=== PATIENT | female | born 1945 | race Caucasian/White ===

== ENCOUNTER 2016-05-30 08:27 | Outpatient (CLI) | payer OTHER | END 2016-05-30 20:00 | disposition home or self-care (01) | LOC: SMA 08:27 | PROVIDERS: ATTEND Family Medicine | DX: N63 Unspecified lump in breast (principal); R92.1 Mammographic calcification found on diagnostic imaging of breast | CPT/HCPCS: 76641; G0204; G0206 ==

== ENCOUNTER 2016-12-03 09:01 | Outpatient (CLI) | payer OTHER | END 2016-12-03 19:29 | disposition home or self-care (01) | LOC: SMA 09:01 | PROVIDERS: ATTEND Family Medicine | DX: R92.8 Other abnormal and inconclusive findings on diagnostic imaging of breast (principal) | CPT/HCPCS: 76641; G0204 ==

== ENCOUNTER 2017-06-11 08:07 | Outpatient (CLI) | payer OTHER | END 2017-06-11 15:49 | disposition home or self-care (01) | LOC: SUS 08:07 | PROVIDERS: ATTEND Family Medicine | DX: N63.0 Unspecified lump in unspecified breast (principal) | CPT/HCPCS: 76641 ==

== ENCOUNTER 2017-12-04 08:52 | Outpatient (CLI) | payer OTHER | END 2017-12-04 20:13 | disposition home or self-care (01) | LOC: SMA 08:52 | PROVIDERS: ATTEND Family Medicine | DX: N60.02 Solitary cyst of left breast (principal) | CPT/HCPCS: 76641; 77066 ==

== ENCOUNTER 2018-06-16 09:52 | Outpatient (CLI) | payer OTHER | END 2018-06-16 21:10 | disposition home or self-care (01) | LOC: SMA 09:52 | PROVIDERS: ATTEND Family Medicine | DX: N60.02 Solitary cyst of left breast (principal); N60.01 Solitary cyst of right breast | CPT/HCPCS: 76641; 77066 ==

== ENCOUNTER 2018-12-17 08:14 | Outpatient (CLI) | payer OTHER | END 2018-12-17 20:00 | disposition home or self-care (01) | LOC: SMA 08:14 | PROVIDERS: ATTEND Family Medicine | DX: N63.24 Unspecified lump in the left breast, lower inner quadrant (principal); N63.22 Unspecified lump in the left breast, upper inner quadrant; R92.1 Mammographic calcification found on diagnostic imaging of breast; R92.2 Inconclusive mammogram | CPT/HCPCS: 76641; 77066 ==

== ENCOUNTER 2019-12-30 08:53 | Outpatient (CLI) | payer OTHER | END 2019-12-30 21:05 | disposition home or self-care (01) | LOC: SMA 08:53 | PROVIDERS: ATTEND Family Medicine | DX: N63.22 Unspecified lump in the left breast, upper inner quadrant (principal); R92.2 Inconclusive mammogram | CPT/HCPCS: 76641; 77066 ==

== ENCOUNTER 2021-01-18 08:25 | Outpatient (CLI) | payer OTHER | END 2021-01-18 19:04 | disposition home or self-care (01) | LOC: SMA 08:25 | PROVIDERS: ATTEND Family Medicine | DX: N63.14 Unspecified lump in the right breast, lower inner quadrant (principal); N63.13 Unspecified lump in the right breast, lower outer quadrant; R92.2 Inconclusive mammogram | CPT/HCPCS: 76641; 77066 ==

== ENCOUNTER 2021-04-04 08:54 | Outpatient (CLI) | payer OTHER | END 2021-04-04 20:44 | disposition home or self-care (01) | LOC: SUS 08:54 | PROVIDERS: ATTEND Family Medicine | DX: N63.22 Unspecified lump in the left breast, upper inner quadrant (principal); N63.24 Unspecified lump in the left breast, lower inner quadrant | CPT/HCPCS: 76642 ==